=== PATIENT | female | born 1950 | race American Indian/Alaskan Native ===

== ENCOUNTER 2016-10-09 10:31 | Emergency (ER) | payer OTHER, MEDICARE ==
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
[2016-10-09 13:49] VITALS: BP 156/86
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
== END 2016-10-09 13:47 | disposition home or self-care (01) ==
LOC: ED 10:31
DX: S13.4XXA Sprain of ligaments of cervical spine, initial encounter (principal); I10 Essential (primary) hypertension; V49.49XA Driver injured in collision with other motor vehicles in traffic accident, initial encounter; Y93.9 Activity, unspecified; Y92.9 Unspecified place or not applicable; Y99.9 Unspecified external cause status
CPT/HCPCS: 71111

== ENCOUNTER 2017-09-27 05:55 | Day surgery (SDC) | payer MEDICARE ==
[2017-09-27] MEDS ORDERED: NACL BACTERIOSTATIC INFILTRATI ONE (06:52)
[2017-09-27] MEDS ORDERED: TORADOL IV PRN (07:13)
[2017-09-27] MEDS ORDERED: DILAUDID IV PRN (07:13)
[2017-09-27] MEDS ORDERED: DEMEROL IV PRN (07:13)
[2017-09-27] MEDS ORDERED: DECADRON ONE (07:16)
[2017-09-27] MEDS ORDERED: PEPCID IV NR (07:16)
[2017-09-27] MEDS ORDERED: ZOFRAN ONE (07:16)
[2017-09-27] MEDS ORDERED: XYLOCAINE MPF 2% ONE (07:16)
[2017-09-27] MEDS ORDERED: SUBLIMAZE ONE (07:16)
[2017-09-27] MEDS ORDERED: DIPRIVAN 10 MG/ML IV ONE (07:16)
--- NOTE | 2017-09-27 07:29 | Short Stay Summary ---
Short Stay Documentation Date of service: 09/27/17 Narrative H&P: 67y/o with findings of a thickened endometrium on ultrasound. An endometrial biopsy was performed with findings of an endometrial polyp. The patient denies any recent vaginal bleeding. - History Principal diagnosis: Endometrial polyp Past Medical History: hypertension Past Surgical History: Other (ankle surgery; tubal ligation; D&C) Social history: - Allergies and Medications Current Medications: Allergies No Known Allergies Allergy (Verified 09/22/17 13:08) Home Medications Medication Instructions Recorded Confirmed Last Taken Type Aspirin [Aspirin BABY CHEW TAB] 81 mg PO QDAY 09/22/17 09/22/17 Unknown History Omeprazole 40 mg PO DAILY 09/22/17 09/22/17 Unknown History Ondansetron [Zofran TAB] 4 mg PO PRN PRN 09/22/17 09/22/17 Unknown History Active Medications Famotidine (Pepcid) 20 mg IV ONCE NR Stop: 09/27/17 08:30 Last Admin: 09/27/17 07:25 Dose: 20 mg Hydromorphone HCl (Dilaudid) 0.5 mg IV Q10MIN PRN PRN Reason: Pain , Severe (7-10) Stop: 09/27/17 13:00 Lactated Ringer's (Lactated Ringers) 1,000 mls @ 100 mls/hr IV DIRECT CHRISTIE Lactated Ringer's (Lactated Ringers) 1,000 mls @ 100 mls/hr IV DIRECT CHRISTIE Stop: 09/27/17 10:00 Last Admin: 09/27/17 07:25 Dose: 100 mls/hr Ketorolac Tromethamine (Toradol) 30 mg IV ONCE PRN PRN Reason: Pain, Moderate (4-6) Meperidine HCl (Demerol) 25 mg IV ONCE PRN PRN Reason: Shivering Midazolam HCl (Versed) 2 mg IV PREOP NR Stop: 09/27/17 23:59 - Physical exam General appearance: no acute distress Integumentary: no rash HEENT: Atraumatic Lungs: Clear to auscultation Breasts: deferred Heart: Regular rate Gastrointestinal: normal Female Genitourinary: deferred Rectal Exam: deferred - Brief post op/procedure progress note Date of procedure: 09/27/17 Pre-op diagnosis: Endometrial polyp Post-op diagnosis: same Procedure: hysteroscopy removal of endometrial polyp with myosure dilation and curettage Anesthesia: MELINA Surgeon: MIKE BARRETO Estimated blood loss: minimal Pathology: list (endometrial curettings and polyp) Specimen disposition: to lab Condition: stable - Hospital course Hospital course: Patient was admitted the day of surgery and underwent a hysteroscopy and removal of endometrial polyp. Please see operative note for details of surgery. Postoperative course was uneventful. - Disposition Condition at discharge: Good Disposition: [id number] TO HOME OR SELFCARE Short Stay Discharge Plan Activity: no restrictions Diet: regular Additional Instructions: Schedule follow-up in 2-[address] Muir Prescriptions: Ibuprofen [Motrin] 800 mg PO Q8HR PRN #60 tablet PRN Reason: Pain, Mild (1-3) oxyCODONE /ACETAMINOPHEN [Percocet 5/325] 1 tab PO Q6HR PRN #30 tablet PRN Reason: Pain
--- NOTE | 2017-09-27 07:58 | Anesthesia Consultation ---
Anesthesia Consult and Med Hx Date of service: 09/27/17 - Airway Anesthetic Teeth Evaluation: Good ROM Head & Neck: Adequate Mental/Hyoid Distance: Adequate Mallampati Class: Class II Intubation Access Assessment: Probably Good - Pulmonary Exam CTA: Yes - Cardiac Exam Cardiac Exam: RRR - Pre-Operative Health Status ASA Pre-Surgery Classification: ASA3 Proposed Anesthetic Plan: General - Pulmonary Hx Smoking: Yes (LIGHT SOCIAL SMOKER OVER 35 YEARS AGO) Hx Respiratory Symptoms: No SOB: No - Cardiovascular System Hx Hypertension: No Hx Heart Attack/AMI: No (>4mets exercise tolerance) - Central Nervous System CVA: No - Gastrointestinal Hx Gastroesophageal Reflux Disease: Yes (controlled with omeprazole) - Endocrine Hx Renal Disease: No Hx Liver Disease: No Hx Insulin Dependent Diabetes: No Hx Non-Insulin Dependent Diabetes: No Hx Thyroid Disease: No - Hematic Hx Anemia: No (take ASA for "thick blood." No hx DVT/PE. Stopped ASA 09/22.) - Other Systems Hx Alcohol Use: Yes Hx Substance Use: No
--- NOTE | 2017-09-27 07:59 | Anesthesia Day of Surgery ---
Anesthesia Day of Surgery - Day of Surgery Patient Examined: Yes Patient H&P Reviewed: Yes Patient is NPO: Yes
[2017-09-27] MEDS ORDERED: LACTATED RINGERS 1,000 ML IV SCH ×3 (08:00→10:00)
[2017-09-27] MEDS ORDERED: VERSED IV NR ×2 (08:00)
[2017-09-27] MEDS ORDERED: NACL 0.9% IR ONE (08:15)
--- NOTE | 2017-09-27 08:35 | Operative Report ---
Operative Report Operative Report: Date of procedure: 09/27/2017 Pre-operative diagnosis: Endometrial polyp Post-operative diagnosis: Same as above Procedure name(s): Hysteroscopy; Dilation and curettage; polypectomy with Myosure Surgeon: Shanon Desouza M.D. Cottage Parent: None Anesthesia: Gen. endotracheal anesthesia Findings endometrial polyp originating from the fundus of the uterus Pathology: Endometrial polyp and endometrial curettings Indication: 67-year-old 0-4 with a history of a thickened endometrium. Endometrial biopsy revealed findings of endometrial polyp. Procedure The patient was taken to the operating room and given general tracheal anesthesia without complication. The patient was prepped and draped in a normal sterile fashion. A bivalve speculum was placed in the patient's vagina single-tooth tenaculums placed on the anterior lip of the cervix. The cervical os was dilated with graduated dilators. A uterine sound was inserted. The hysteroscope was then placed. Insufflation of the uterine cavity was performed with normal saline. Gen. survey of the uterine cavity revealed atrophic endometrium with a endometrial polyp originating from the fundus of the uterus.. The hysteroscope was then removed. The Myosure device was then inserted. The endometrial polyp was excised with the [place]. There was no evidence of uterine perforation. The Miyashiro device was then removed. A sharp curettage with endometrial surface was performed. The remainder of the vaginal instruments were then removed atraumatically. The patient was then successfully extubated taken to the recovery room. All sponge laps and needle counts were correct 2.
[2017-09-27 09:34] VITALS: BP 143/80
--- NOTE | 2017-09-27 16:49 | Post Anesthesia Evaluation ---
- Post Anesthesia Evaluation Patient Participated: Yes Airway Patent: Yes Stable Respiratory Function: Yes Nausea/Vomiting: No Temp > 96.8F: Yes Pain Manageable: Yes Adequeate Hydration: Yes Anesthesia Complications: No
== END 2017-09-27 10:10 | disposition home or self-care (01) ==
LOC: OR 05:55
PROVIDERS: ATTEND Obstetrics & Gynecology
DX: N84.0 Polyp of corpus uteri (principal); I10 Essential (primary) hypertension; M19.90 Unspecified osteoarthritis, unspecified site; K21.9 Gastro-esophageal reflux disease without esophagitis; Z98.51 Tubal ligation status; Z98.890 Other specified postprocedural states; Z79.82 Long term (current) use of aspirin; Z79.899 Other long term (current) drug therapy; Z87.891 Personal history of nicotine dependence; Z98.41 Cataract extraction status, right eye; Z98.42 Cataract extraction status, left eye
CPT/HCPCS: 58563; 88305; A4217; C1782; J2250; J2405; J2704; J3010; J7120; J1100

== ENCOUNTER 2021-07-27 21:03 | Emergency (ER) | payer MEDICARE ==
--- NOTE | 2021-07-27 21:54 | XRay Report ---
CHEST 2 VIEWS INDICATION / CLINICAL INFORMATION: CHEST PAIN. COMPARISON: One view of the chest from 10/09/2016. FINDINGS: SUPPORT DEVICES: None. HEART / MEDIASTINUM: No significant abnormality. LUNGS / PLEURA: Unchanged lateral left apical calcified granuloma. The lungs are otherwise clear. No significant pleural effusion. No pneumothorax. ADDITIONAL FINDINGS: No significant additional findings. IMPRESSION: 1. No acute abnormality of the chest. Signer Name: Jose Antonio Singleton MD Signed: 07/27/2021 9:49 PM Workstation Name: [id number]
[2021-07-27 22:28] LABS: Hematocrit 40.6 % (30.3-42.9); Hemoglobin 12.9 gm/dl (10.1-14.3); Mean Corpuscular HGB Conc 32 % (30-34); Mean Corpuscular Volume 90 fl (79-97); Platelet Count 372 K/mm3 (140-440); Red Blood Count 4.53 M/mm3 (3.65-5.03)
[2021-07-27 22:42] LABS: Alanine Aminotransferase 20 units/L (7-56); BUN/Creatinine Ratio 19; Blood Urea Nitrogen 19 mg/dL (7-17); Calcium 9.1 mg/dL (8.4-10.2); Hemolysis Index 10
[2021-07-28 02:44] LABS: Basophils % (Manual) 0 % (0.0-1.8); Eosinophils % (Manual) 0 % (0.0-4.3); Total Cells Counted 100
[2021-07-28 02:45] LABS: Platelet Estimate Consistent w Auto; RBC Morphology Normal
[2021-07-28] MEDS ORDERED: METOCLOPRAMIDE 10 MG/2 ML INJ IV ONE (07:09)
[2021-07-28] MEDS ORDERED: ALUM-MAG HYDROXIDE-SIMETHICONE 200-200-20MG/5ML ORAL LIQD 30 ML PO ONE (07:09)
[2021-07-28] MEDS ORDERED: LIDOCAINE VISCOUS 2% 15 ML ORAL LIQD PO ONE (07:10)
[2021-07-28] MEDS ORDERED: SODIUM CHLORIDE 0.9% 1000 ML 1,000 ML IV ONE (07:22)
--- NOTE | 2021-07-28 07:27 | Emergency Department Report ---
HPI - General Chief Complaint: Chest Pain Time Seen by Provider: 07/28/21 07:03 - HPI HPI: 71-year-old -[place] female presents to the emergency department with a complaint of epigastric cramping pain that radiates up into the chest, along with nausea, vomiting and diarrhea, all of which that started yesterday afternoon. She had about 4 episodes of vomiting and 3 episodes of diarrhea over this time. She has a past medical history of hypertension and hyperlipidemia. No recent travel or sick contacts at home. She has not taken anything for symptoms prior to presentation other than some home remedies. Currently her abdominal cramping sensation is about a 3 out of 10 in intensity. No known alleviating factors. It worsens somewhat with eating and drinking. ED Past Medical Hx - Past Medical History Hx Hypertension: No Hx Heart Attack/AMI: No (>4mets exercise tolerance) Hx GERD: Yes Hx Liver Disease: No Hx Renal Disease: No Hx Arthritis: Yes - Surgical History Additional Surgical History: right ankle, dnc - Social History Smoking Status: Former Smoker - Medications Home Medications: Home Medications Medication Instructions Recorded Confirmed Last Taken Type Aspirin [Aspirin BABY CHEW TAB] 81 mg PO QDAY 09/22/17 09/27/17 09/22/17 09:00 History Omeprazole 40 mg PO DAILY 09/22/17 09/27/17 09/26/17 09:00 History Ondansetron [Zofran TAB] 4 mg PO PRN PRN 09/22/17 09/22/17 Unknown History Ibuprofen [Motrin] 800 mg PO Q8HR PRN #60 tablet 09/27/17 Unknown Rx oxyCODONE /ACETAMINOPHEN [Percocet 1 tab PO Q6HR PRN #30 tablet 09/27/17 Unknown Rx 5/325] Ondansetron [Zofran Odt] 4 mg PO Q8HR PRN #15 tab.rapdis 07/28/21 Unknown Rx ED Review of Systems ROS: Stated complaint: CHEST TIGHTNESS,SOB Other details as noted in HPI Comment: All other systems reviewed and negative Constitutional: denies: chills, fever Eyes: denies: eye pain, vision change ENT: denies: ear pain, throat pain Respiratory: denies: cough, shortness of breath Cardiovascular: chest pain. denies: palpitations Gastrointestinal: abdominal pain, nausea, vomiting, diarrhea Genitourinary: denies: urgency, dysuria Musculoskeletal: denies: back pain, arthralgia Skin: denies: rash, lesions Neurological: denies: headache, weakness Physical Exam - Physical Exam Vital Signs: Vital Signs 07/27/21 21:09 Temperature 98.1 F Pulse Rate 81 Respiratory 18 Rate Blood Pressure 154/73 O2 Sat by Pulse 98 Oximetry Physical Exam: GENERAL: The patient is well-developed well-nourished. HENT: Normocephalic. Atraumatic. Patient has moist mucous membranes. EYES: Extraocular motions are intact. NECK: Supple. Trachea is midline. CHEST/LUNGS: Clear to auscultation. There is no respiratory distress noted. HEART/CARDIOVASCULAR: Regular. There is no tachycardia. There is no murmur. ABDOMEN: Abdomen is soft, nontender. Patient has normal bowel sounds. There is no abdominal distention. SKIN: Skin is warm and dry. NEURO: The patient is awake, alert, and oriented. The patient is cooperative. Normal speech. MUSCULOSKELETAL: There is no tenderness or deformity. There is no limitation range of motion. ED Course Vital Signs 07/27/21 21:09 Temperature 98.1 F Pulse Rate 81 Respiratory 18 Rate Blood Pressure 154/73 O2 Sat by Pulse 98 Oximetry ED Medical Decision Making - Lab Data Result diagrams: 07/27/21 21:31 07/27/21 21:31 - EKG Data -: EKG Interpreted by Me EKG shows normal: sinus rhythm, axis, intervals, QRS complexes (Low voltage), ST-T waves Rate: normal - EKG Data When compared to previous EKG there are: previous EKG unavailable Interpretation: normal EKG - Radiology Data Radiology results: report reviewed, image reviewed interpreted by me: Chest x-ray does not show any acute process. There are no pleural effusions, obvious pneumonia and there is no pneumothorax. Abdominal x-ray shows nonspecific nonobstructive bowel gas. No free air. Procedure(s): US abdomen limited Accession Number(s): [id number] cc: YAZ JOHNSON DO Limited abdominal ultrasound INDICATION: Right upper quadrant pain FINDINGS: Aorta and IVC appear normal. Liver is enlarged measuring 19.4 cm with fatty infiltration. No gallbladder wall thickening or pericholecystic fluid. Common bile duct measures 6.6 mm. Right kidney appears normal. Gallstones are identified. IMPRESSION: 1. Cholelithiasis. 2. Hepatomegaly - Medical Decision Making This patient presents to the emergency department with a complaint of some upper abdominal pain with radiation to the chest, nausea, vomiting and diarrhea. At the time of my examination she is feeling greatly improved. Abdomen is soft, nondistended and nontoxic in appearance. Normal sending heart and lungs to auscultation and the patient does not appear in any respiratory or acute distress. EKG does not show any morphology consistent with ST elevation myocardial infarction. Patient's labs have been unremarkable including CBC, metabolic panel, negative troponins x3, but she does have a mild leukocytosis of about 14,000. Chest x-ray does not show any pneumonia, pleural effusions, pneumothorax, widened mediastinum, or any other acute process. Abdominal x-ray shows nonspecific nonobstructive bowel gas, and no free air. Abdominal ultrasound shows cholelithiasis without cholecystitis. This could be the source of the patient's discomfort. She is low on the heart score. Vital signs reassuring throughout her ED course. Patient be discharged home to follow-up with primary care. She has been given outpatient referral for general surgery to establish care regarding her cholelithiasis in case she needs an outpatient cholecystectomy at some time in the future. She has also been given an outpatient referral for cardiology. She will return to the ER with any worsening of her symptoms or with any acute distress. Critical Care Time: No Critical care attestation.: If time is entered above; I have spent that time in minutes in the direct care of this critically ill patient, excluding procedure time. ED Disposition Clinical Impression: Cholelithiasis, Atypical chest pain Disposition: 01 HOME / SELF CARE / HOMELESS Is pt being admited?: No Condition: Stable Instructions: Cholelithiasis, Nonspecific Chest Pain, Adult Additional Instructions: Please follow-up with your primary care physician in the next few days. While I believe that your chest discomfort is due to your gallstones, I am still giving you a referral for a local brine well operator, Dr. Watson, for follow-up. I am also giving you a referral for a local general surgeon, Dr. Acosta, to follow-up regarding your gallstones as you may need elective removal of your gallbladder in the near future. Return to the emergency department with any worsening of your symptoms or with any acute distress. Prescriptions: Ondansetron [Zofran Odt] 4 mg PO Q8HR PRN #15 tab.rapdis PRN Reason: Nausea Referrals: PRIMARY CARE, [Primary Care Provider] - 2-3 Days OSVALDO WATSON MD [Staff Physician] - 3-5 Days RAJINDER ACOSTA MD [Staff Physician] - 3-5 Days Time of Disposition: 09:57 HEART Score - HEART Score History: Slightly suspicious EKG: Normal Age: > 65 Risk factors: 1-2 risk factors Troponin: Troponin T < 0.010 ng/mL (0.00-0.029) 07/28/21 05:20 Troponin: < normal limit HEART Score: 3 - Critical Actions Critical Actions: 0-3 pts:0.9-1.7%risk of adverse cardiac event.Candidate for astrid hernandez
[2021-07-28 08:32] VITALS: BP 139/74
--- NOTE | 2021-07-28 08:50 | Ultrasound Report ---
Limited abdominal ultrasound INDICATION: Right upper quadrant pain FINDINGS: Aorta and IVC appear normal. Liver is enlarged measuring 19.4 cm with fatty infiltration. N o gallbladder wall thickening or pericholecystic fluid. Common bile duct measures 6.6 mm. Right kidne y appears normal. Gallstones are identified. IMPRESSION: 1. Cholelithiasis. 2. Hepatomegaly Signer Name: Tyrell Buckner MD Signed: 07/28/2021 8:46 AM Workstation Name: [id number]
--- NOTE | 2021-07-28 09:01 | XRay Report ---
ABDOMEN 2 VIEW(S) INDICATION / CLINICAL INFORMATION: Abd pain. COMPARISON: Abdominal ultrasound earlier today FINDINGS: TUBES / LINES: None. BOWEL GAS PATTERN: No significant abnormality. FREE AIR / EXTRALUMINAL GAS: None seen. ADDITIONAL FINDINGS: No significant additional findings. IMPRESSION: 1. No significant abnormality. Signer Name: Krish Boogie MD Signed: 07/28/2021 8:56 AM Workstation Name: [id number]
--- NOTE | 2021-07-29 18:59 | Electrocardiograph Report ---
[facility] Test Date: 2021-07-27 Test Time: 21:16:19 Pat Name: JENNIFER BRUSH Department: ED Room: Gender: F Contract Analyst: JAJA : 1950 Requested By: YAZ JOHNSON Order Number: [id number] Reading MD: Ridge Mclaughlin Measurements Intervals [place] Rate: 76 P: 37 [place]: 139 QRS: 19 QRSD: 89 T: 7 QT: 390 QTc: 439 Interpretive Statements Sinus rhythm Low voltage, precordial leads No previous ECG available for comparison Electronically Signed On 07-29-2021 18:59:28 EDT by Ridge Mclaughlin
== END 2021-07-28 11:48 | disposition home or self-care (01) ==
LOC: ED 21:03
DX: R07.89 Other chest pain (principal); K80.20 Calculus of gallbladder without cholecystitis without obstruction; K21.9 Gastro-esophageal reflux disease without esophagitis; M19.90 Unspecified osteoarthritis, unspecified site; Z98.890 Other specified postprocedural states; Z87.891 Personal history of nicotine dependence
CPT/HCPCS: 36415; 71046; 74019; 76705; 80053; 83690; 84484; 85007; 85025; 93005; 96360; 96361; 99284; J7030; J2765